=== PATIENT | female | born 1935 | race Caucasian/White ===

== ENCOUNTER 2018-08-27 20:21 | Emergency (ER) | payer OTHER ==
[~2018-08-27] VITALS: Ht 154.9 cm; Wt 56.7 kg
--- NOTE | ~2018-08-27 | EKG ---
[address] [address] ELECTROCARDIOGRAM REPORT Name: FARA JOHNSON [id number] Admission: 08/27/18 Attend Phys: Discharge: 08/27/18 Date of : 31 Report #: [id number] THIS REPORT FOR: //name// [facility] ED Test Date: 2018-08-27 Test Time: 21:18:05 Pat Name: FARA JOHNSON Department: Room: Gender: F Epic Application Coordinator: ANGIE : 1935 Requested By: Bridgette Chavez Order Number: [id number] MD: Brett Guevara Measurements Intervals [place] Rate: 56 P: 9 [place]: 166 QRS: -2 QRSD: 95 T: 33 QT: 436 QTc: 421 Interpretive Statements Sinus rhythm No previous ECG available for comparison Electronically Signed On 08-30-2018 11:01:31 WRAPPER DIPPER by Brett Guevara [email or web address] <ELECTRONICALLY SIGNED> By: Brett Guevara MD 08/30/18 1101 [id number] [id number] Brett Guevara MD /SONG
[~2018-08-27 20:21] MED LIST: CLONAZEPAM 0.50.5 M1 PO; DEPAKOTE 250MG250 M1 PO; KEFLEX500 MG PO; KLONOPIN1 MG PO; LANSOPRAZOLE30 MG PO; LIPITOR 20 MG T20 M1 PO; LOSARTAN POTAS100 MG PO; MOBIC15 MG PO; NITROFURANTOIN100 MG PO; SEROQUEL 25 MG25 M1 PO; ZOFRAN ODT4 MG SUBLING
[2018-08-27 21:33] LABS: ABSOLUTE NEUTROPHILS 5.7 thou/uL (1.4-8.2); BASOPHILS 0.5 % (0.0-2.0); EOSINOPHILS 2.7 % (0.0-3.0); HEMATOCRIT 40.1 % (37.0-47.0); HEMOGLOBIN 13.8 gm/dL (12.0-15.0); LYMPHOCYTES 20.7 % (24.0-44.0); MCH 31.6 pg (26.0-34.0); MCHC 34.4 g/dL (28.0-37.0); MCV 91.8 fL (80.0-100.0); PLATELET COUNT 241 thou/uL (150-400); POLYS 65.1 % (36.0-66.0); RBC 4.36 mil/uL (4.20-5.00); RDW 13.6 % (10.5-14.5); WBC 8.7 thou/uL (4.0-11.0)
[2018-08-27 21:43] LABS: ANION GAP 10 mmol/L (7-16); BUN 14 mg/dL (7-18); CALCIUM 8.8 mg/dL (8.5-10.1); CHLORIDE 101 mmol/L (98-107); CO2 28 mmol/L (21-32); CREATININE 0.9 mg/dL (0.6-1.0); GLUCOSE 122 mg/dL (74-106); POTASSIUM 4.3 mmol/L (3.5-5.1); SODIUM 139 mmol/L (136-145)
[2018-08-27 21:44] LABS: INR 1.1; PROTIME 11.1 Seconds (9.3-11.4)
[2018-08-27 21:47] LABS: URINE BILIRUBIN NEGATIVE (Negative); URINE BLOOD 1+ (Negative); URINE CLARITY CLEAR; URINE COLOR YELLOW; URINE GLUCOSE-RANDOM* NEGATIVE (Negative); URINE KETONES NEGATIVE (Negative); URINE NITRITE-REFLEX NEGATIVE (Negative); URINE PROTEIN (DIPSTICK) NEGATIVE (Negative); URINE UROBILINOGEN 0.2 E.U./dl (0.2-1.0)
[2018-08-27 21:52] LABS: ALBUMIN 3.4 g/dL (3.4-5.0); SGOT 24 U/L (15-37); SGPT 19 U/L (30-65); TOTAL BILIRUBIN 0.5 mg/dL (<0.1-1.0); TOTAL PROTEIN 7.4 g/dL (6.4-8.2); TROPONIN-I <0.06 ng/mL (<0.06)
[2018-08-27 21:59] LABS: URINE LEUKOCYTES-REFLEX 1+ (Negative)
[2018-08-27 22:01] LABS: BACTERIA-REFLEX 1-9 Few /HPF (None Seen); CASTS None Seen /LPF (None Seen); CRYSTALS None Seen /LPF (None Seen); SQUAMOUS 0-3 Few /LPF (0-3); URINE RBC None Seen /HPF (0-2); URINE WBC-REFLEX 0-5 Rare /HPF (0-5)
[2018-08-27] MEDS ORDERED: TOPROL XL100 MG PO (22:04)
[2018-08-27] MEDS ORDERED: NORVASC5 MG PO (22:05)
[2018-08-27] MEDS ORDERED: KEFLEX500 M1 PO (22:16)
[2018-08-27 22:25] VITALS: BP 159/85
== END 2018-08-27 22:33 | disposition home or self-care (01) ==
LOC: ER 20:21
PROVIDERS: Physician Assistant
DX: N39.0 Urinary tract infection, site not specified (principal); R42 Dizziness and giddiness; Z96.652 Presence of left artificial knee joint; Z90.49 Acquired absence of other specified parts of digestive tract; Z98.890 Other specified postprocedural states

== ENCOUNTER 2018-12-15 04:43 | Emergency (ER) | payer OTHER ==
[~2018-12-15] VITALS: Ht 157.5 cm; Wt 68.0 kg
[~2018-12-15 04:43] MED LIST changes: +KEFLEX500 M1 PO; +NORVASC5 MG PO; +TOPROL XL100 MG PO
[2018-12-15] MEDS ORDERED: COLACE100 MG PO (05:52)
[2018-12-15] MEDS ORDERED: MIRALAX17 GM PO (05:52)
[2018-12-15 06:20] VITALS: BP 176/105
== END 2018-12-15 06:53 | disposition home or self-care (01) ==
LOC: ER 04:43
DX: K59.00 Constipation, unspecified (principal); Z96.652 Presence of left artificial knee joint; Z90.49 Acquired absence of other specified parts of digestive tract

== ENCOUNTER 2019-01-08 14:32 | Inpatient (IN) | payer OTHER ==
[~2019-01-08] VITALS: Ht 160 cm; Wt 63.5 kg
--- NOTE | ~2019-01-08 | HC ---
[facility] [place] [address] CONSULTATION Name: FARA JOHNSON Room #: 421-P ADM IN M.R.#: [id number] Admission: 01/08/19 ������������������ Attend Phys: Trav Hope MD Discharge: ������������������ Date of : 33 Report #: [id number] THIS REPORT FOR: //name// CC: DANA physician/PCP Trav Hope DATE OF SERVICE: 01/10/2019 HISTORY OF PRESENT ILLNESS: This is an 83-year-old female patient who was evaluated by me for any neurological etiology for the patient's dizziness. This patient is extremely hard of hearing. Her mentation also does not look very good. I talked to the nurses and looks like they are planning to send her to an assisted or supervised living. She had dizziness. At one time nystagmus was noticed. Apparently, she had some nausea associated with this. She also had some fall. She is not complaining of any neck pain. She does not know if she hit her head or not. REVIEW OF SYSTEMS: Indicates that she is very hard of hearing. She tells me that she does not remember ever having a stroke. She indicates she has seen Dr. Sue, but she does not know for what purpose. I tried to get further history in this patient. I am not able to get any further history. She is on multiple psychiatric medications, and I am not sure why she is on that. She is on Depakote, Seroquel and lorazepam as per record, but I do not know how long she has been on it and what is the reason she is on that. REVIEW OF SYSTEMS: I carried out the 14-point review of systems the best I could, and this is all a relevant history I can get. PAST MEDICAL HISTORY: As described above. FAMILY HISTORY: Negative for any early age stroke. SOCIAL HISTORY: She said she does not drink alcohol. PHYSICAL EXAMINATION: Indicates she is alert. She could not tell me what hospital she is in, but she is also very hard of hearing. She also could not tell me the exact date. Her speech looks intact. Cranial nerve examination on my examination does not appear to be showing any definite nystagmus. She moves all 4 extremities. Her position sense looks intact. Tone is symmetrical. There is no meningeal sign. There is no carotid bruit in this patient. She has no edema. Blood pressure is 155/81, respirations 18, pulse is 71, and temperature is 98.4. LABORATORY DATA: White count is 7.1, when she came in, it was somewhat high. She did have a CT angiogram of the head and neck, and she also had an MRI of the brain and that appeared unremarkable and at least does not explain any etiology [address] [address] CONSULTATION Name: FARA JOHNSON Room #: 421-P ADM IN M.R.#: [id number] Admission: 01/08/19 ������������������ Attend Phys: Trav Hope MD Discharge: ������������������ Date of : 31 Report #: [id number] for the patient's dizziness. IMPRESSION: It is unlikely that there is any neurological etiology for the patient's dizziness. Extensive neurological workup is unremarkable, and she should follow up with her ENT physician. Depending upon their workup and their impression, she may or may not need any further neurological evaluation. Thank you very much for this referral. ��������������������������������������������� ���������������������������������������� By: ��������������������������������������������� 2118 1203 Nehemiah Frias MD /sunita
[~2019-01-08 14:32] MED LIST changes: +COLACE100 MG PO; +MIRALAX17 GM PO
[2019-01-08 14:33] VITALS: BP 166/88
[2019-01-08 15:12] LABS: URINE BILIRUBIN NEGATIVE (Negative); URINE BLOOD TRACE (Negative); URINE CLARITY CLEAR; URINE COLOR YELLOW; URINE GLUCOSE-RANDOM* TRACE (Negative); URINE KETONES NEGATIVE (Negative); URINE LEUKOCYTES-REFLEX TRACE (Negative); URINE NITRITE-REFLEX NEGATIVE (Negative); URINE PROTEIN (DIPSTICK) NEGATIVE (Negative); URINE SPECIFIC GRAVITY 1.015 (1.005-1.035); URINE UROBILINOGEN 0.2 E.U./dl (0.2-1.0)
[2019-01-08 15:14] LABS: ABSOLUTE NEUTROPHILS 11.3 thou/uL (1.4-8.2); BASOPHILS 0.3 % (0.0-2.0); HEMATOCRIT 38.3 % (37.0-47.0); HEMOGLOBIN 12.9 gm/dL (12.0-15.0); LYMPHOCYTES 5.4 % (24.0-44.0); MCH 31.4 pg (26.0-34.0); MCHC 33.7 g/dL (28.0-37.0); MCV 93.1 fL (80.0-100.0); MONOCYTES 2.2 % (1.0-8.0); PLATELET COUNT 198 thou/uL (150-400); POLYS 92.1 % (36.0-66.0); RBC 4.12 mil/uL (4.20-5.00); WBC 12.3 thou/uL (4.0-11.0)
[2019-01-08 15:15] LABS: SSA (PROTEIN CONFIRMATORY) TRACE (APPROX. 5) mg/dL (Negative)
[2019-01-08 15:22] LABS: ANION GAP 11 mmol/L (7-16); BUN 15 mg/dL (7-18); CALCIUM 8.7 mg/dL (8.5-10.1); CHLORIDE 99 mmol/L (98-107); CO2 25 mmol/L (21-32); CREATININE 0.8 mg/dL (0.6-1.0); GLUCOSE 205 mg/dL (74-106); POTASSIUM 3.7 mmol/L (3.5-5.1); SODIUM 135 mmol/L (136-145)
[2019-01-08 15:25] LABS: INR 1.1; PROTIME 11.1 Seconds (9.3-11.4)
[2019-01-08 15:32] LABS: ALBUMIN 3.2 g/dL (3.4-5.0); SGOT 16 U/L (15-37); SGPT 15 U/L (30-65); TOTAL BILIRUBIN 0.4 mg/dL (<0.1-1.0); TROPONIN-I <0.06 ng/mL (<0.06)
--- NOTE | 2019-01-08 15:48 | EKG ---
[place] [address] [facility] [place] [address] ELECTROCARDIOGRAM REPORT Name: FARA JOHNSON [id number] ������������������ Admission: 01/08/19 ������������������ Attend Phys: Discharge: ������������������ Date of : 31 Report #: [id number] ����������������������������������������������������������������� [id number] THIS REPORT FOR: //name// [facility] ED Test Date: 2019-01-08 Test Time: 15:19:27 Pat Name: FARA JOHNSON Department: Room: Gender: F Hand Bobbin Cleaner: : 1935 Requested By: Bridgette Chavez Order Number: [id number] MD: Brett Guevara Measurements Intervals [place] Rate: 62 P: 0 VT: 181 QRS: -4 QRSD: 107 T: 21 QT: 449 QTc: 456 Interpretive Statements Sinus rhythm Compared to ECG 08/27/2018 21:18:05 No significant changes Electronically Signed On 01-08-2019 15:48:27 CDT by Brett Guevara [email or web address] ��������������������������������������������� <ELECTRONICALLY SIGNED> ���������������������������������������� By: Brett Guevara MD ��������������������������������������������� 01/08/19 1548 1519 1519 MD VY Hernadez
[2019-01-08 18:28] VITALS: BP 133/78
[2019-01-08 18:48] VITALS: BP 144/79
[2019-01-08 19:48] VITALS: BP 143/73
[2019-01-08 20:20] LABS: ALBUMIN 3.3 g/dL (3.4-5.0)
[2019-01-08 20:45] LABS: TSH 2.07 uIU/mL (0.358-3.740)
--- NOTE | 2019-01-09 03:04 | NUR ---
PT ARRIVED ON UNIT FROM ER AT APPROX 1945. COMES FROM [facility] AND WAS ADMITTED FOR AN UNWITNESSED FALL AND DIZZINESS. VOIDING PER BEDPAN. DENIES PAIN. RESTING COMFORTABLY. NO NEEDS VOICED. CALL LIGHT WITHIN REACH. WILL CONTINUE TO PROVIDE FREQUENT OBSERVATION.
[2019-01-09 04:18] VITALS: BP 133/65
[2019-01-09 04:25] LABS: HEMATOCRIT 36.2 % (37.0-47.0); HEMOGLOBIN 12.3 gm/dL (12.0-15.0); MCH 31.9 pg (26.0-34.0); MCHC 34.1 g/dL (28.0-37.0); MCV 93.6 fL (80.0-100.0); RBC 3.87 mil/uL (4.20-5.00); RDW 13.9 % (10.5-14.5); WBC 11.2 thou/uL (4.0-11.0)
[2019-01-09 04:51] LABS: CALCIUM 8.8 mg/dL (8.5-10.1); CREATININE 0.6 mg/dL (0.6-1.0); MAGNESIUM 1.9 mg/dL (1.8-2.4); POTASSIUM 3.5 mmol/L (3.5-5.1)
[2019-01-09 07:07] VITALS: BP 128/67
--- NOTE | 2019-01-09 14:54 | NUR ---
PT A&OX3-4, IV INTACT IN L AC. AMBULATES WITH ASSIST X1. YUHAAVIATAM AND ANXIOUS. DAUGHTERS AT BEDSIDE. BED ALARM ON. WILL CONT. TO [facility] FOR SAFETY.
[2019-01-09 16:15] VITALS: BP 147/85
[2019-01-09 20:09] VITALS: BP 162/81
--- NOTE | 2019-01-10 02:32 | NUR ---
PT IN BED RESTING QUIETLY AT [facility] OF SHIFT THIS PM. SOME ANXIETY NOTED AND CURIOUS TO MEDS SHE IS GETTING AT HS. EXPLAINED MED PROTOCOL AND SHE WAS COMFORTABLE WITH EXPLANATION. USED BP WITH ASSIST X2 THIS PM. CURRENTLY SLEEPING.
[2019-01-10 04:40] VITALS: BP 138/71
[2019-01-10 05:56] LABS: CALCIUM 8.3 mg/dL (8.5-10.1); CREATININE 0.8 mg/dL (0.6-1.0); MAGNESIUM 1.9 mg/dL (1.8-2.4); POTASSIUM 3.5 mmol/L (3.5-5.1)
[2019-01-10 08:17] LABS: HEMATOCRIT 38.9 % (37.0-47.0); MCH 31.3 pg (26.0-34.0); MCHC 33.4 g/dL (28.0-37.0); MCV 93.7 fL (80.0-100.0); RBC 4.15 mil/uL (4.20-5.00); WBC 7.1 thou/uL (4.0-11.0)
[2019-01-10 08:52] VITALS: BP 164/94
--- NOTE | 2019-01-10 15:27 | 2DMMODE ---
[facility] [address] [place] [address] 2 D/M-MODE ECHOCARDIOGRAM Name: FARA JOHNSON Room #: 421-P [facility] IN .R.#: [id number] ������������� Admission: 01/08/19 ������������� Attend Phys: Trav Hope, Discharge: ��� ������������� ��� Date of : 31 Date of Service: 01/10/19 1527 �� Report #: [id number] �������� ��������������������������������������������[id number] THIS REPORT FOR: //name// APPROVED REPORT Study performed: 01/10/2019 13:45:00 EXAM: Comprehensive 2D, Doppler, and color-flow Echocardiogram Patient Location: Bedside Room #: [facility] Status: routine BSA: 1.66 HR: 65 bpm BP: 164/94 mmHg Rhythm: NSR Other Information Study Quality: Adequate Indications Dizziness and Vertigo Hypertension/HDD 2D Dimensions RVDd: 26.35 mm IVSd: 15.35 (7-11mm) LVOT Diam: 18.62 (18-24mm) LVDd: 31.05 mm PWd: 15.14 (7-11mm) Ascending Ao: 29.92 (22-36mm) LVDs: 24.29 (25-40mm) Aortic Root: 28.69 mm IVC: 23.00 mm Volumes Left Atrial Volume (Systole) Single Plane 4CH: 59.17 mL Single Plane 2CH: 67.44 mL LA ESV Index: 42.00 mL/m2 Aortic Valve AoV Peak Diego.: 0.96 m/s AO Peak Gr.: 3.65 mmHg LVOT Max P.72 mmHg LVOT Max V: 0.82 m/s DANIEL Vmax: 2.35 cm2 Mitral Valve E/A Ratio: 0.5 MV Decel. Time: 304.68 ms [facility] [address] [place] [address] 2 D/M-MODE ECHOCARDIOGRAM Name: FARA JOHNSON Room #: 421-P [facility] IN ..#: [id number] ������������� Admission: 01/08/19 ������������� Attend Phys: Trav Hope, Discharge: ��� ������������� ��� Date of : 31 Date of Service: 01/10/19 1527 �� Report #: [id number] �������� ��������������������������������������������[id number] MV E Max Diego.: 0.50 m/s MV A Diego.: 0.91 m/s MV PHT: 88.36 ms IVRT: 115.34 ms Pulmonary Valve PV Peak Diego.: 0.85 m/s PV Peak Gr.: 2.89 mmHg Pulmonary Vein P Vein S: 0.50 m/s P Vein A: 0.23 m/s P Vein D: 0.30 m/s P Vein A Dur.: 115.3 msec P Vein S/D Ratio: 1.67 Tricuspid Valve RAP Estimate: 15.00 mmHg Left Ventricle The left ventricle is normal size. Moderate concentric left ventricular hypertrophy. The left ventricular systolic function is normal. The left ventricular ejection fraction is within the normal range. LVEF is 55%. Mild diastolic dysfunction is present (impaired relaxation pattern). Right Ventricle The right ventricle is normal size. The right ventricular systolic function is normal. Atria Left atrium is mildly dilated. The right atrium size is normal. Aortic Valve Aortic valve is mildly calcified. Trace to mild aortic regurgitation. There is no aortic valvular stenosis. Mitral Valve The mitral valve is normal in structure. Mild mitral regurgitation. No evidence of mitral valve stenosis. Tricuspid Valve The tricuspid valve is normal in structure. Trace tricuspid regurgitation. Unable to assess PA pressure. Pulmonic Valve The pulmonary valve is normal in structure. There is no pulmonic valvular regurgitation. [facility] [address] [place] [address] 2 D/M-MODE ECHOCARDIOGRAM Name: FARA JOHNSON Room #: 421-P [facility] IN .R.#: [id number] ������������� Admission: 01/08/19 ������������� Attend Phys: Trav Hope, Discharge: ��� ������������� ��� Date of : 31 Date of Service: 01/10/19 1527 �� Report #: [id number] �������� ��������������������������������������������[id number] Great Vessels The aortic root is normal in size. IVC is mildly dilated and collapses <50% with inspiration. Pericardium There is no pericardial effusion. <Conclusion> The left ventricle is normal size. LVEF is 55%. Left atrium is mildly dilated. Aortic valve is mildly calcified. Trace to mild aortic regurgitation. The mitral valve is normal in structure. Mild mitral regurgitation. The tricuspid valve is normal in structure. Trace tricuspid regurgitation. Unable to assess PA pressure. The pulmonary valve is normal in structure. There is no pericardial effusion. ��������������������������������������������� <ELECTRONICALLY SIGNED> ���������������������������������������� By: Reagan Curtis MD ��������������������������������������������� 01/10/19 1527 1527 1527 Reagan Curtis MD /INF
--- NOTE | 2019-01-10 15:35 | NUR ---
INITIAL ASSESSMENT: Pt evaluated for d/c planning needs. Reviewed chart and spoke with nurse, pt and pt's daughter. [facility] [place]. She has cane for ambulation and has been on service with [facility] in the past. Pt and family plan on pt returning home on d/c from hospital. Will remain available to assist as needed.
[2019-01-10 16:00] VITALS: BP 155/81
--- NOTE | 2019-01-10 18:30 | NUR ---
ASSUMED CARE AT 0700, SHIFT ASSESSMENT DONE, MEDS GIVEN, VSS. WORKED WITH OCCUPATIONAL THERAPHY, REFUSED PHYSICAL THERAPHY. MRI OF HEAD WAS NEGATIVE. DENIES PAIN, NAUSEA, VOMITING. WILL CONTINUE TO ASSESS AND ASSIST WITH ADLs NEEDED.
[2019-01-10 20:50] VITALS: BP 145/75
--- NOTE | 2019-01-11 03:52 | NUR ---
ASSUMED CARE AT START OF SHIFT PT ALERT TO SELF AND PLACE VERY CHEVAK EVEN WITH HEARING AIDS, PT IMPULSIVE WHEN HAVING TO GET OUT OF BED TO GO TO BATHROOM, BED ALARM ON FOR SAFETY, DISCUSSED PLAN OF CARE VERBALIZED UNDERSTANDING AND AGREEABLE. WILL REPORT CHANGES OR ABNORMAL FINDINGS.
[2019-01-11 04:30] VITALS: BP 142/84
[2019-01-11 05:15] LABS: HEMATOCRIT 39.5 % (37.0-47.0); HEMOGLOBIN 13.2 gm/dL (12.0-15.0); MCH 31.5 pg (26.0-34.0); MCHC 33.5 g/dL (28.0-37.0); MCV 94.2 fL (80.0-100.0); RBC 4.2 mil/uL (4.20-5.00); WBC 8.4 thou/uL (4.0-11.0)
[2019-01-11 05:26] LABS: CALCIUM 8.6 mg/dL (8.5-10.1); CREATININE 0.8 mg/dL (0.6-1.0); POTASSIUM 3.8 mmol/L (3.5-5.1)
[2019-01-11 07:50] VITALS: BP 143/81
--- NOTE | 2019-01-11 12:08 | NUR ---
I have reviewed the documentation by EDILMA DIAZ from 01/11/19 to 01/11/19 and I concur with it. GLYNN AWAN
--- NOTE | 2019-01-11 14:35 | NUR ---
Following for d/c planning needs. Pt is medically ready for d/c. Spoke at length with pt's daughter, VIJAYA Pruett at the [facility]. Dtr states that pt has been to skilled in the past, and pt is safe to return home. Pt has [employer] at home and daughter is trying to find places where patient can go during the day to keep her occupied. Dtr has hired someone private duty one day a week to spend time with pt. Pt's son-in-law is also taking pt to outings during the week. Provided [employer] to pt. Dtr is agreeable to home health. Pt has had [facility] in the past and wants to use again. Notified [facility]. No other needs identified.
[2019-01-11 14:50] VITALS: BP 143/81
--- NOTE | 2019-01-11 15:35 | HC ---
[facility] [place] [address] CONSULTATION Name: FARA JOHNSON Room #: 421-P ADM IN M.R.#: [id number] Admission: 01/08/19 ������������������ Attend Phys: Trav Hope MD Discharge: ������������������ Date of : 33 Report #: [id number] THIS REPORT FOR: //name// CC: [facility] physician/PCP Romulo Hope DATE OF SERVICE: 01/09/2019 SURGEON: Duke Yu MD. REASON FOR CONSULTATION: Syncope. HISTORY OF PRESENT ILLNESS: This is an 83-year-old female admitted via the Emergency Department on 01/08/2019 after falling. She lives by herself at home and about 7 in the morning, had a sudden onset of syncope. She fell hitting her head with questionable loss of consciousness. She was brought by EMS to the Emergency Department. The patient has no previous history of vertigo. She had an episode of syncope 1 year ago, treated and released from [facility] with similar symptoms. Both of her daughters are here to provide history. Her daughter has had benign positional vertigo and felt by her diagnosis that this was benign positional vertigo. The patient has no history of this in the past. This was not brought on by any movement and was very much consistent with syncope. I explained to the daughters and the patient that it is unusual that this would occur as primary benign positional vertigo is an 83-year-old with no previous history of this in the past. The patient is in the middle of a cardiac and neurologic workup. 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. PAST MEDICAL HISTORY: Cellulitis, closed head injury, constipation, facial pain, multiple falls, unable to ambulate. MEDICATIONS: Reviewed in the electronic health record. ALLERGIES: None. REVIEW OF SYSTEMS: She has no particular complaints this morning. She is not dizzy. PHYSICAL EXAMINATION: GENERAL: Shows a well-developed, thin, 83-year-old female, seen in her hospital [address] [place] [address] CONSULTATION Name: FARA JOHNSON Room #: 421-P [facility] IN M.R.#: [id number] Admission: 01/08/19 ������������������ Attend Phys: Trav Hope MD Discharge: ������������������ Date of : 31 Report #: [id number] room with both daughters. She is alert, awake, oriented x 3 and conversant. She is hard of hearing with bilateral in the ear hearing aids in place. She just recently got these from her group billing coordinator, Dr. Sue. VITAL SIGNS: Show temperature of 98, pulse of 66, blood pressure 128/67, 96% on room air. HEENT: She is normocephalic. Pupils equal, round. No nystagmus. Facial exam shows abrasions over the left zygoma and cheek. Otologic exam, intact mobile tympanic membrane. No middle ear effusion. No mastoid tenderness. Nasal exam: Deviated septum to the left. Oral cavity: Missing teeth, no mucosal lesions. NECK: No adenopathy, no masses, no thyromegaly. No carotid bruits. No bruits over the mastoid. NEUROLOGIC: Cranial nerves 2-12 are intact. Motor, sensory and cerebellar exams are normal. CBC shows a white count elevated 11.2. Hemoglobin of 12.3. Metabolic evaluation is normal. TSH in the normal range. I have reviewed the patient's scans including a CT angiogram, CT facial bone, CT C-spine and CT head with no acute findings. ASSESSMENT: Syncope. In absence of a previous history of vertigo, it would be unusual for benign positional vertigo to just begin in an 83-year-old. In addition, this is usually not severe enough to require hospitalization. The patient is in the hospital to rule out more dangerous etiologies such as cardiac or neurologic sequelae. I would recommend further evaluation including echocardiogram and carotid Doppler studies. In addition, consideration of MRI of the brain to assess for late effect after yesterday morning's syncopal episode. PLAN: Once all other etiologies have been ruled out, the patient will require a formal evaluation, which is impossible to do in the hospital by Otolaryngology. She may follow up with her group billing coordinator, Dr. Sue. I would recommend audiogram in addition to comprehensive vestibular testing at [facility]. If labyrinthine etiology can be ascertained by testing, consideration can be given to treatment usually by physical therapy. I appreciate the consultation. I will not plan to follow along with you in the hospital. I have encouraged her to follow up with her Oscillograph Technician, Dr. Sue post discharge. ��������������������������������������������� <ELECTRONICALLY SIGNED> ���������������������������������������� By: Duke Yu MD ��������������������������������������������� 01/11/19 1535 1201 0316 Duke Yu MD /nt
[2019-01-11] MEDS ORDERED: ANTIVERT25 MG PO (16:13)
[2019-01-11] MEDS ORDERED: METOPROLOL SUCC50 MG PO (16:13)
[2019-01-11 16:56] VITALS: BP 143/81
--- NOTE | 2019-01-11 17:16 | NUR ---
DISCHARGE PAPERWORK GONE OVER WITH PATIENT, SIGNED AND COPY IN CHART. IV ACSESS DCD. RX'S GIVEN TO PATIENT. ALL BELONGINGS PACKED AND SENT WITH PATIENT.
--- NOTE | 2019-01-11 18:18 | NUR ---
PT DISCHARGED AT THIS TIME. TAKEN VIA W/C TO [facility]. STOPPED BY THE PHARMACY FOR HOME MEDS.
[2019-01-11 18:19] VITALS: BP 143/81
== END 2019-01-11 18:25 | disposition home health service (06) | DRG 149 ==
LOC: ER 14:32 → 4E 18:17 → EROBS 18:17 → 4E 19:16 → ENTRNSPT 01-11 17:56 → 4E 01-11 18:25
PROVIDERS: Physician Assistant; ADMIT Internal Medicine
DX: H81.10 Benign paroxysmal vertigo, unspecified ear (principal); I10 Essential (primary) hypertension; F03.90 Unspecified dementia, unspecified severity, without behavioral disturbance, psychotic disturbance, mood disturbance, and anxiety; Z96.652 Presence of left artificial knee joint; H91.90 Unspecified hearing loss, unspecified ear; F41.1 Generalized anxiety disorder; E78.5 Hyperlipidemia, unspecified; S09.90XA Unspecified injury of head, initial encounter; M19.90 Unspecified osteoarthritis, unspecified site; W18.00XA Striking against unspecified object with subsequent fall, initial encounter; Z87.440 Personal history of urinary (tract) infections; Y93.89 Activity, other specified; Y92.89 Other specified places as the place of occurrence of the external cause; Y99.8 Other external cause status; Z90.49 Acquired absence of other specified parts of digestive tract; Z79.899 Other long term (current) drug therapy
CPT/HCPCS: 10084; 10183

== ENCOUNTER 2020-10-10 16:08 | Inpatient (IN) | payer OTHER ==
[~2020-10-10] VITALS: Ht 160 cm; Wt 60.4 kg
[~2020-10-10 16:08] MED LIST changes: +ANTIVERT25 MG PO; +METOPROLOL SUCC50 MG PO
[2020-10-10 16:11] VITALS: BP 138/88
[2020-10-10 17:50] LABS: URINE BILIRUBIN NEGATIVE (Negative); URINE BLOOD TRACE (Negative); URINE CLARITY CLEAR; URINE COLOR YELLOW; URINE GLUCOSE-RANDOM* NEGATIVE (Negative); URINE KETONES 1+ (Negative); URINE NITRITE-REFLEX NEGATIVE (Negative); URINE PROTEIN (DIPSTICK) NEGATIVE (Negative); URINE UROBILINOGEN 0.2 E.U./dl (0.2-1.0)
[2020-10-10 17:54] LABS: URINE LEUKOCYTES-REFLEX 2+ (Negative)
[2020-10-10 17:57] LABS: BACTERIA-REFLEX 1-9 Few /HPF (None Seen); CASTS None Seen /LPF (None Seen)
[2020-10-10 17:58] LABS: CRYSTALS None Seen /LPF (None Seen); RENAL EPITHELIAL CELLS 0-3 Few /LPF (None Seen); SQUAMOUS 0-3 Few /LPF (0-3); URINE RBC 0-2 Rare /HPF (0-2); URINE WBC-REFLEX 6-15 Few /HPF (0-5)
[2020-10-10 18:52] LABS: BASOPHILS 0.3 % (0.0-2.0); EOSINOPHILS 0.3 % (0.0-3.0); HEMATOCRIT 42.4 % (37.0-47.0); HEMOGLOBIN 13.9 gm/dL (12.0-15.0); LYMPHOCYTES 10.3 % (24.0-44.0); MCH 30.8 pg (26.0-34.0); MCHC 32.7 g/dL (28.0-37.0); MCV 94.1 fL (80.0-100.0); MONOCYTES 8.1 % (1.0-8.0); PLATELET COUNT 243 thou/uL (150-400); RDW 13.6 % (10.5-14.5); WBC 12.3 thou/uL (4.0-11.0)
[2020-10-10] MEDS ORDERED: VALSARTAN160 MG PO (18:54)
[2020-10-10 19:00] LABS: CREATININE 1.2 mg/dL (0.6-1.0); POTASSIUM 4.4 mmol/L (3.5-5.1)
[2020-10-10 19:53] VITALS: BP 148/75
[2020-10-10 21:06] VITALS: BP 136/95; BP 145/82
[2020-10-11 03:40] VITALS: BP 166/98
--- NOTE | 2020-10-11 05:02 | NUR ---
RECIEVED CARE OF THIS PATIENT AT 2100 WHEN SHE ARRIVED FROM ED VIA CART ACCOMPANIED BY ED CHRISTOEL. PATIENT ALERT AND ORIENTED X4 BUT CONFUSED ABOUT SOMETHINGS AND FORGETFUL. LOSES TRAIN OF THOUGHT OFTEN AND STARTS TO TALK ABOUT SOMETHING DIFFERENT. UP TO BATHROOM/BSC SEVERAL TIMES WITH URGENCY. PARANOID AND IMPULSIVE. DENIES PAIN. SLEPT LITTLE THIS SHIFT.
[2020-10-11 07:19] VITALS: BP 143/55
--- NOTE | 2020-10-11 10:12 | NUR ---
assumed care at 0700. pt is a&o x4 but however is very confused and forgetful. daughter in the room and asked for psych christina. on her mom and if her mom can take clonzapem 3 times a day to help with psyc. will let doctor arnaldo know. iv is intact and shows no signs of redness or swelling. scd are in place. assist x1 to bsc. fall precaution. call light within reach. will continue to monitor.
--- NOTE | 2020-10-11 10:17 | NUR ---
assumed care at
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
[2020-10-11 15:49] VITALS: BP 124/69
[2020-10-11 20:54] VITALS: BP 142/84
--- NOTE | 2020-10-12 04:34 | NUR ---
Assumed pt care at 1900. Pt is alert ad confused. No sign of distress noted in pt. Pt is impulsive. Fall precaution in place. Assessment completed and documented. Scheduled meds administered to pt. Denies pain. No acute events noted. Continue to monitor. No further needs at this time.
[2020-10-12 05:09] VITALS: BP 128/85
--- NOTE | 2020-10-12 07:57 | NUR ---
PT RESTING AT THIS TIME.
[2020-10-12 09:00] VITALS: BP 137/96
--- NOTE | 2020-10-12 09:00 | NUR ---
PT AWAKE AT THIS TIME. PT GETTING MEDS FROM STUDENT NURSE AND TEACHER. PT TALKING ABOUT HER HAIR AND THAT SHE NEEDS MORE OF IT. PT ORIENTED TO SELF AND PLACE. PT TOOK MEDS WHOLE WITHOUT ANY ISSUES. PT LUNGS CLEAR AND ON ROOM AIR. PT HAS IV TO RT FA WITH FLUIDS RUNNING. PT UP AD HOMERO WITH STEADY GAIT.
[2020-10-12 09:03] VITALS: BP 137/96
[2020-10-12] MEDS ORDERED: CEFUROXIME250 MG PO (10:49)
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
--- NOTE | 2020-10-12 11:32 | NUR ---
COVID SWAB PERFORMED AT THIS TIME. WILL AWAIT RESULTS BEFORE DISCHARGING TO [facility].
--- NOTE | 2020-10-12 16:15 | NUR ---
GAVE REPORT TO RITA LILLY AT [facility].
--- NOTE | 2020-10-12 16:50 | NUR ---
PT LEFT VIA W/C TO [facility]. PT STATED SHE FELT AFRAID OF GOING TO NEW UNIT. REASURED PT AND DTR AT SIDE WALKING WITH HER. PT TAKEN TO [facility] AND INTRODUCED TO STAFF AND HER ROOM. PT SEEMS SCARED OF NEW PLACE.
== END 2020-10-12 16:58 | DRG 682 ==
LOC: ER 16:08 → EROBS 19:24 → 4S 19:24
PROVIDERS: Emergency Medicine; ADMIT Hospitalist; ATTEND Hospitalist
DX: N17.9 Acute kidney failure, unspecified (principal); G93.41 Metabolic encephalopathy; N39.0 Urinary tract infection, site not specified; Z20.822 Contact with and (suspected) exposure to COVID-19; Z96.652 Presence of left artificial knee joint; F03.90 Unspecified dementia, unspecified severity, without behavioral disturbance, psychotic disturbance, mood disturbance, and anxiety; E78.5 Hyperlipidemia, unspecified; F41.1 Generalized anxiety disorder; I10 Essential (primary) hypertension; F60.9 Personality disorder, unspecified; Z66 Do not resuscitate; Z60.2 Problems related to living alone; M19.90 Unspecified osteoarthritis, unspecified site; D72.829 Elevated white blood cell count, unspecified; Z90.49 Acquired absence of other specified parts of digestive tract; Z79.1 Long term (current) use of non-steroidal anti-inflammatories (NSAID); Z90.710 Acquired absence of both cervix and uterus
CPT/HCPCS: 10195

== ENCOUNTER 2020-10-12 17:49 | Inpatient (IN) | payer OTHER ==
[~2020-10-12] VITALS: Ht 154.9 cm; Wt 52.3 kg
[~2020-10-12 17:49] MED LIST changes: +CEFUROXIME250 MG PO; +VALSARTAN160 MG PO
[2020-10-12 18:27] VITALS: BP 145/93
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
[2020-10-12 20:03] VITALS: BP 197/94
--- NOTE | 2020-10-13 06:07 | NUR ---
ASSUMED PT'S CARE BEGINNING OF THIS PM SHIFT. CONFUSED. DID GET AGGRESSIVE AND AGITATED AFTER PUPPY DULL WAS TAKEN FROM HER. PT STARTED YELLING AND FOLLOWING STAFFING AROUND, VOICING THAT SHE CANNOT STAY HERE TONIGHT AND HAVE TO GO HOME. PT BECAME COMBATIVE. NURSING PAGED MATT LILLY ONCALL TO SEE IF PT COULD HAVE HER PUPPY TOY TO CALM HER DOWN. MATT BERMAN VOICED THAT SINCE MATT DOC REQUESTED PT TO NOT HAVE IT THEN HE OWULD ABIDE BY THAT. MATT BERMAN WAS PAGED AGAIN REGARDING PT'S AGITATION PT DECLINED HER PO MEDS. GEODON IM 10MG GIVEN ONETIME. PT DID GET CALM AFTER ABOUT AN HOUR AND CAME OUT OF HER ROOMS TO REQUEST MEDS. PT TOOK ALL HER PO MEDS. PT SLEPT WELL AFTERWARDS. PT NOW AWAKE WITH MILD INFLAMMATION OF RIGHT EYE WHICH IS CLEARING UP. WILL MENTION TO DAY RN. PT SEEMS TO BE UNSTEADY THIS AM. NOW BACK IN BED WITH BED ALARM IN PLACE. WILL CONTINUE TO MONITOR.
--- NOTE | 2020-10-13 12:47 | NUR ---
ASSUMED CARE AT 0700 THIS MORNING. PT. UP AND WALKING FROM HER ROOM TO THE DINING ROOM AND BACK REPEATEDLY. SHE IS VERY CONFUSED. ALERT AND ORIENTEDX1. SHE THINKS HER PARENTS ARE ON THEIR WAY TO PICK HER UP. SHE KEPT ASKING TO SEE THE DR. BUT WHEN DR. TORRES ARRIVED SHE KEPT TELLING HIM SHE COULD NOT TALK TO HIM BECAUSE HER PARENTS ARE ON THEIR WAY HERE. SHE GOT UPSET WITH THIS RN I INFORMED HER HE WANTS TO LISTEN TO HER HEART AND LUNGS. SHE WOULD NOT ALLOW THIS. SHE GOT ARGUMENATIVE WITH THE REQUEST. SHE DID TAKE HER MORNING MEDICATIONS ONE PILL AT A TIME, BUT DID TAKE THEM ALL. SHE HAS BEEN ON THE EDGE OF IRRITABILITY TODAY, TAKING SOME TALKING TO--TO MAINTAIN HER BEHAVIORS.
[2020-10-13 14:23] VITALS: BP 153/76
[2020-10-13 19:36] VITALS: BP 140/83
--- NOTE | 2020-10-14 03:31 | NUR ---
RECIEVED CARE OF THIS PATIENT AT 1900. PATIENT ALERT AND ORIENTED TO SELF ONLY. FIRST OF SHIFT PATIENT WAS CALM AND COOPERATIVE, BUT THE SHIFT WENT ON SHE BECAME UNRULY AND MORE AND MORE AGITATED. SHE KEPT INTERFERING IN THE CARE OF OTHERS. SHE WANTED TO LEAVE AND ACCUSSED THE NURSING STAFT KEEPING HER HERE. SHE CRABBED THE STAFF, PINCHED, TRIED TO BITE AND KICK. AN ORDER WAS OBTAINED TO GIVE PRN MED, GIVEN. FELL ASLEEP ABOUT [address] IN THE SHIFT. DEMIRS PAIN.
[2020-10-14 09:19] VITALS: BP 151/70
[2020-10-14 09:54] VITALS: BP 151/90
--- NOTE | 2020-10-14 10:49 | NUR ---
1030 RESUMMED CARE FROM OVERNIGHT SHIFT THIS AM, PATIENT WAS ON SOFA IN DAY ROOM ASLEEP. PATIENT HAD A PRN LAST NIGHT FOR AGITAION SHE WOKE UP ABOUT 10:00 ATE BREAKFAST. PATIENT TOOK MEDICATION WITHOUT INCIDENCE PATIENT IS ALERT ORIENTED TO SELF ONLY. PATIENT IS UNABLE TO TELL ME ABOUT SI/HI/AH/VH AT PRESENT. 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 PATIENTS LUNGS CLEAR PATIENT IS IMPULSIVE AT TIME AND HAS SOME ANXIETY. WILL CONTINUE TO MONITOR PATIENT FOR SAFETY AND BEHAVIORS.
--- NOTE | 2020-10-14 14:29 | NUR ---
Assessment and treatment plan completed
[2020-10-14 17:57] VITALS: BP 146/113
[2020-10-14 18:00] VITALS: BP 127/59
--- NOTE | 2020-10-14 22:52 | NUR ---
Assumed care on 10/14/20 @ 1900, ambulating ad shelia throughout the hallways and day room. Exit seeking, and when aproached to come away from the exit door, says that she is looking for a bathroom. Redirected to her room to the bathroom. Oriented to self only. Continent, Normoactive bowel sounds. HRRR, Lungs CTA. Cooperated with assessment. Unable to answer mental health assessment questions. Was able to remove her own hearing aides, placed in container at bedside. Tylenol 650 provided for arthritis in the hip upon follow up is sleeping. Kept trying to ask a question, related to medication, but extremely confused and referring to downspouts on the garage, the yard, and other unrelated trains of thought. Dressed herself in gown and accepted help with getting ready for bed at . Sleeping at this writing. Will continue to monitor for patient safety and comfort as per unit protocol.
[2020-10-15 01:36] VITALS: BP 146/113
[2020-10-15 09:30] VITALS: BP 114/88
--- NOTE | 2020-10-15 10:19 | NUR ---
PT JUST GOT UP AT THIS TIME. ASSISTED PT TO BATHROOM AND SHE GOT DRESSED ON OWN WITH SUPERVISION. PT WANTING TO WEAR SOME MAKE-UP. PER DTR SHE LIKES TO LOOK NICE AND CARE ABOUT HER APPEARIANCE. PT VERY HAPPY TO SEE DALE THAT WAS IN A PAPER BAG IN HER ROOM. PT UP WITH STEADY GAIT. PT TOOK MEDS WITHOUT ANY ISSUES.
[2020-10-15 10:34] VITALS: BP 114/88
--- NOTE | 2020-10-15 11:21 | NUR ---
Patient was seated at the dining table in the dayroom this AM. This nurse introduced herself. Patient was pleasant and cooperative, looking through a magazine. Patient having flight of ideas, pointing to pictures, speaking nonsensical thoughts. Patient then started to point to 2 different male patients. Patient asked if "those men" had eaten today. Nurse responded yes, everyone was able to eat. Patient stated she was worried about them because it was "poison and didn't want them to ". Patient assured that everyone is safe. Patient then asked to use the bathroom. As nurse was walking with patient to her room, patient asked where we were going a couple different times, then in the next statement stated she needed to use the bathroom. Once arriving to patient's room, nurse pointed out her name on the outside of the door. Patient stated "that's me, why are we here?". Nurse showed patient her bathroom. Patient stated "what is that for?". When explained that it is her bathroom, patient stated "I need to use the bathroom". Patient very confused this AM and displaying paranoia thoughts about other patients being poisoned.
--- NOTE | 2020-10-15 14:32 | NUR ---
BABS spoke to daughter Seble about pt; Seble wants to pursue guardianship of pt. BABS advised her to contact her contract attorney as soon as possible and begin that process as pt cannot stay in the hospital past when insurance determines she is no longer eligible to be on this unit. She said ok. BABS sent her a NH listing from medicare.gov, and [facility] handbook. Seble said that pt has Medicaid, but has not paid her spend down. BABS reviewed the Medicaid website and searched for pt; Medicaid shows that pt is active and has a spend down of $556. BABS provided Seble education on spend downs and [place] Medicaid vs. community Medicaid. BABS team will continue to follow pt during her stay on this unit.
--- NOTE | 2020-10-15 17:26 | NUR ---
PT HAS BEEN PLEASANT THIS SHIFT AND TAKING MEDICATION WITHOUT ANY ISSUES.
[2020-10-15 19:49] VITALS: BP 144/81
--- NOTE | 2020-10-16 03:49 | NUR ---
Assumed care of pt at 1900. Pt sitting out in dining room w/peer at start of shift. Pt was calm and cooperative at that time. Pt is A&O x 1 to self. Pt denied having any physical pain. Pt takes meds whole with water. Pt is medication complaint, but is resistant to taking the medications, as she believed she had already had the medications for the day. Explained and educated pt on the medications being given, what they were for, and how often she takes them. Pt was pleasantly confused earlier in shift. Pt became tearful and more agigitated later in shift when she went to her room. Pt observed asking this promotion writer, why is he so mean to mean, then proceded to show me her arm, taking about a niko that is coming to kill her. Talked to pt and re-assured she was at [facility] and she was safe. Pt observed pointing and talking to unseen objects/others. Stating she could see him and that it was the the Lord. Pt is continent and wears a brief. Pt is independent with ADL's. Pt is on 12 min checks for safety. Will continue to monitor for changes in mood/behavior & for safety per hospital/unit protocol.
[2020-10-16 08:35] VITALS: BP 129/75
--- NOTE | 2020-10-16 10:37 | NUR ---
New admit to [facility]. Hx anxiety, dementia, personality disorder. Attempted 2 visits today, pt not available. Chart reviewed, eating 100% of meals. Questionable wt status as 3 different wts obtained of 123-133-115 lb? Will follow wt and intake trends. For now, consider low nutrition risk since eating well.
--- NOTE | 2020-10-16 11:07 | NUR ---
BABS received a vm from [facility] stating that her leader writer told her that pt is not incompetent so does not need a guardian. Instead, pt needs a DPOA to be filled out with the leader writer. BABS returned [facility] call. No answer. BABS left a msg. BABS team will continue to follow pt during her stay on this unit.
--- NOTE | 2020-10-16 18:35 | NUR ---
Alert and oriented to name and place only. Confused speech t/o day. Up ambulating around unit with slow, steady gait. Denies SI/HI. Breath sounds clear. Reg HR auscultated. Color pink with brisk capillary refill and palpable peripheral pulses. Independent with voiding. Active bowel sounds over soft, rounded abdomen. Hearing aide found in sock and placed in ear. Spoke with children several times t/o day. Daughter called stating her Mom was living at home prior to admission and they thought (family) she was competent and that staff was looking at one incident, "a snapshot in time" and making a hasty decision to place her in facility. She stated she felt family was not being included in plan of care. She stated she disagreed with guardianship and that it was too expensive ($1,500) but that they were interested in becoming DPOA. States she talked with a SW who had not seen her Mom and wanted to know plan. Also concerned with lack of ability to visit--explained this was d/t COVID. Wants meeting with team. Dr. Reed and SW aware. Met with this afternoon r/t 96hr hold. Currently sitting in day room with peers, no s/o distress. they were pursuing
[2020-10-16 20:12] VITALS: BP 141/90
--- NOTE | 2020-10-17 01:11 | NUR ---
covid test negative 10/16/20
--- NOTE | 2020-10-17 07:44 | NUR ---
PROGRESS PT UP AD HOMERO WALKING HALLS AND SITTING IN DAYROOM MOST OF SHIFT. VERBALIZED THAT SHE WAS FEARFUL OF ANOTHER PT BUT SHE CONTINUED TO FOLLOW AND TALK TO HIM. VSS, NO SUICIDAL OR OTHER BEHAVIORS NOTED.
[2020-10-17 09:55] VITALS: BP 110/54
--- NOTE | 2020-10-17 11:29 | NUR ---
SW attempted to administer a SLUMS with pt. Pt was confused when SW asked to meet with her. She was also wandering with a male pt. Pt kept talking about how slow the nurse was coming out of the room and her pink shoes. She showed no understanding of what SW was asking her. SW team will continue to follow pt during her stay on this unit.
--- NOTE | 2020-10-17 13:20 | NUR ---
PATIENT WAS IN DAYROOM SLEEPING WHEN CARE ASSUMED AT 0700 HRS. WHEN AWOKEN, ASSISTED BY STAFF TO BATHROOM, AND SERVED BREAKFAST. PATIENT IS ALERT, FORGETFUL, AND VERY CONFUSED. PATIENT IS [place], REQUIRES CONSTANT REDIRECTION. PATIENT TOOK ALL MEDICATION WHOLE WITHOUT DIFFICULTY, SHE IS EATING MEALS, AND DRINKING FLUID FAIRLY WELL. PATIENT DENIES SUICIDAL IDEATION, NOT ABLE TO APPROPRIATELY RESPOND TO FURTHER ASSESSMENT QUESTIONS DUE TO COGNITIVE IMPAIRMENT. AFFECT IS FLAT/BLUNTED, MOOD IS DEPRESSED. NO SIGN OF ACUTE DISTRESS NOTED AT THIS TIME, WILL CONTINUE TO REDIRECT, AND MONITOR FOR SAFETY.
[2020-10-17 19:36] VITALS: BP 135/79
--- NOTE | 2020-10-18 04:44 | NUR ---
Assumed care for pt at 1900. Pt up in dining room sitting at table with peer. Pt presented at time with a flat affect, somewhat tearful/sad when talking about the baby. Pt holding and rocking a rolled towel that she states this is the baby, well it is not the baby, I hope the baby will be okay. Pt is compliant with nursing assessment and medications. Pt takes medications whole with water. Pt became increasingly confused around 2200 regarding her HS medications, then stated she was scared. Pt was redirectable after about 30 minutes she then laid down in bed. Pt denied having any pain. Pt is on 12 min rounds for safety. Will continue to monitor for any changes in mood/behaviors and safety per unit/hosptial protocol.
[2020-10-18 09:39] VITALS: BP 154/100
--- NOTE | 2020-10-18 13:03 | NUR ---
BABS spoke with pt about her daughter. BABS asked pt if she knows who Seble is and she responded "she's my daughter. She's a nurse." SW asked her if she thinks Seble makes good decisions. Pt responded "yes. She works for a hospital." SW asked her if Seble had to make decisions for her does she think they would be good ones. Pt responded "oh yes! she's very smart." SW asked pt if she knew what a DPOA was. Pt responded "I've heard of it before but Im not sure I ever knew what it was." SW asked her if she would like her to explain it and pt responded "sure." SW explained and pt said "oh yeah I know what that is." SW asked if she would ever want Seble to be her DPOA and pt responded "yes! I would be okay with that." BABS then contacted Dr. Reed and received permission based on her conversation with pt to have pt sign a DPOA doc. Dr. Reed gave her consent. When the power systems engineer arrived to complete pt's notary on the DPOA form, before pt signed BABS asked her if she remembered what a DPOA is and she responded "yes it's someone who makes decisions." BABS asked her again if she would like Seble as her DPOA and she said yes. BABS then witnessed pt sign a DPOA document with Seble as her agent with the power systems engineer. BABS received a vm from Seble requesting for her to send a referral to [facility] and that Dorian Booth was the rep she spoke to. BABS contacted Dorian and confirmed the fax number to send a referral. BABS sent the referral and also confirmed they accept Medicaid for payment. BABS provided an update to Seble concerning pt. Seble said she will get a copy of pt's DPOA docs this evening. BABS team will continue to follow pt during her stay on this unit.
--- NOTE | 2020-10-18 13:44 | NUR ---
Alert and orientated to name only. At times has appropriate conversations/requests, at other times is confused and restless. Denies SI/HI. Watery eyes with small amt clear drainage. Eyes slightly matted when first woke up. Wiping eyes and blowing nose several times in AM, no further symptoms. T. 99.2 orally. Took shower and washed hair with assistance. Breath sounds clear. Reg HR auscultated. Color pink with brisk capillary refill and palpable peripheral pulses. +2 pitting edema in lower legs and top of feet. Yellow urine per toilet. Active bowel sounds over soft rounded abdomen. Legs stiff this am, now ambulating with slow, steady gait. 2.5 cm salmon colored lesion on R lower leg, initially appeared slightly vesicular on top, less fluid when reassessed with johanna Pressley orders. Currently sitting in day room without s/o distress.
[2020-10-18 19:28] VITALS: BP 153/81
--- NOTE | 2020-10-19 03:22 | NUR ---
Assumed care of pt at 1900. Pt up wandering halls and spending time in dining room during earlier part of evening. Pt is A&O x 1 (self). Denies pain. Affect is flat. Mood variable, looking frustrate/tr at times, then observed smiling during conversations. Pt takes meds whole with water. Pt took all scheduled medications except for the Depakote ER, stating she would take it tomorrow, but she did drink 6 oz of water. Pt has been resting in her room in bed with her eyes shut majority of this shift. Pt is on 12 min checks for safety. Will continue to monitor for any changes in behavior/mood and safety.
[2020-10-19 09:44] VITALS: BP 153/97
--- NOTE | 2020-10-19 11:41 | NUR ---
SW sent referrals to the following NH: [facility] Chelsey Swenson at the [facility]'s SW team will continue to follow pt during her stay on this unit.
--- NOTE | 2020-10-19 14:58 | NUR ---
RT Progress Note- Dolores has been present in both the milieu and recreation therapy groups. She does attempt to socialize with peers, often sitting with them during both meals and free time. Her hearing impairment does serve as a strong barrier to successful and orientated conversation. When she can hear well, she is able to maintain better focus, however she does not always wear her hearing aids. She has not displayed any behaviors during interaction with recreation therapy staff. RT Team will continue to encourage patient's participation.
--- NOTE | 2020-10-19 17:38 | NUR ---
Assumed pt care at 0700. pt was in her room resting. pt was oriented to self. pt was calm and co-operative with care. pt took her medication whole without difficulties. pt ambulates with a steady gait. pt denies SI/HI, DEnNIES PAIN. There was no sign of distress noted. After lunch pt got agitated, PT states she wants to go home. pt is anxious at times,but she was redirectable. will continue to monitor.
[2020-10-19 19:41] VITALS: BP 170/91
--- NOTE | 2020-10-20 03:55 | NUR ---
Assumed pt's care beginning of this pm shift. Oriented to self. Confused. Pleasant. Pt was calm and cooperative with care. No anxiety or depression noted. Pt was in the dayroom, watching TV with peers. Pt took meds whole per emar. Pt sleeping well this shift. Continues to sleep in her room. Will continue to monitor.
[2020-10-20 06:23] LABS: HEMATOCRIT 34.3 % (37.0-47.0); HEMOGLOBIN 11.5 gm/dL (12.0-15.0); MCH 31.6 pg (26.0-34.0); MCHC 33.4 g/dL (28.0-37.0); MCV 94.6 fL (80.0-100.0); RBC 3.63 mil/uL (4.20-5.00); RDW 13.8 % (10.5-14.5); WBC 7.3 thou/uL (4.0-11.0)
[2020-10-20 06:52] LABS: ALBUMIN 2.8 g/dL (3.4-5.0); CALCIUM 8.6 mg/dL (8.5-10.1); CREATININE 0.9 mg/dL (0.6-1.0); POTASSIUM 4.3 mmol/L (3.5-5.1); TOTAL BILIRUBIN 0.5 mg/dL (0.2-1.0); TOTAL PROTEIN 5.5 g/dL (6.4-8.2)
[2020-10-20 07:47] VITALS: BP 137/87
--- NOTE | 2020-10-20 10:31 | NUR ---
Alert and orientated to self only. Confused speech but does answer some questions appropriatedly, follows directions. Denies SI/HI. States thumb hurts but then uses thumb to button and zipper jeans. Breath sounds clear. Reg HR auscultated. Color pink with brisk capillary refill and palpable peripheral pulses. +1-2 pitting edema in feet. Will apply RAMYA hose per order. Voided independently, yellow urine per toilet. Active bowel sounds over soft, rounded abdomen. Ambulating with regular, steady gait. Currently sitting at table with peers, no s/o distress.
[2020-10-20 18:23] VITALS: BP 157/92
--- NOTE | 2020-10-21 02:24 | NUR ---
ASSESMENT: PT WAS UP IN DAY AREA AT THE CHANGE OF SHIFT. PT IS MOTHERING TO PT'S AND NEEDS CONSTANT REDIRECTING. PT SOME TIMES CRIES (NO TEARS) ABOUT SIMPLE THINGS. RIGHT THUMB WAS NOTED WITH A BANDAID APPLIED. NOTHING VISIBLE UNDERNEATH THE DRESSING. PT CLAIMS THAT IT HURT. BLOOD PRESURE WAS SLIGHTLY ELEVATED AT THE BEGINNING OF THE SHIFT. SLOW PROGRESS TOWARDS DC GOALS. WILL CONTINUE TO MONITOR.
[2020-10-21 09:29] VITALS: BP 129/85
--- NOTE | 2020-10-21 10:17 | NUR ---
1015 RESUMMED CARE FROM OVERNIGHT SHIFT THIS AM, PATIENT ALERT IN DAY ROOM. PATIENT ORIENTED TO SELF ONLY PATIENT ATE BREAKFAST TOOK MEDICATION WITHOUT INCIDENCE. PATIENT DENIES SI/HI/AH/VH AT PRESENT PATIENT WANTS TO GO HOME. PATIENTS ABDOMEN SOFT BOWEL SOUNDS PRESENT LUNGS CLEAR PATIENT HAS 1+EDEMA IN ANKLES. PATIENT CALM COOPERATIVE IS SOMETIMES FORGETFUL WILL CONTINUE TO MONITOR PATIENT FOR SAFETY AND BEHAVIORS.
[2020-10-21 19:53] VITALS: BP 156/92
--- NOTE | 2020-10-22 01:06 | NUR ---
Assumed care on 10/21/20 @ 1900, Confused and oriented to person and Date only. Cannot give other indicators of orientation. Continent and urinates in the toilet. Last BM earlier today 10/21. Ultrasound done on legs and found to be negative. Confusion and anxiety noted at bedtime, worrying about getting a ride to go home. Denies SI, HI, and hallucinations. Anxiety and confusion noted. Chalino hose removed at HS. Will continue to monitor for safety and comfort as per unit protocol.
[2020-10-22 08:56] VITALS: BP 150/99
[2020-10-22 09:19] VITALS: BP 150/89
--- NOTE | 2020-10-22 12:13 | NUR ---
1200 RESUMMED CARE FROM OVERNIGHT SHIFT THIS AM, PATIENT IN DAY ROOM SITTING QUIET. PATIENT ATE BREAKFAST TOOK MEDICATION WITHOUT INCIDENCE PATIENT ALERT ORIENTED TO SELF. PATIENT DENIES SI/HI/AH/VH AT PRESENT PATIENT CALM COOPERATIVE PARTICIPATES IN GROUPS. PATIENTS ABDOMEN SOFT BOWEL SOUNDS PRESENT LUNGS CLEAR. PATIENT LESS ANXIOUS AND INTERACTS WITH SOME OF THE PATIENTS. WILL CONTINUE TO MONITOR PATIENT FOR SAFETY AND BEHAVIORS.
[2020-10-22 20:00] VITALS: BP 177/78
[2020-10-22 20:06] VITALS: BP 177/78
--- NOTE | 2020-10-23 04:26 | NUR ---
PATIENT HAS BEEN A/0X1 AND CALM AND PLEASANT TONIGHT. SHE HAS A SLOW STEADY GAIT. SHE TOOK HER MEDS WHOLE WITH WATER. SHE HAS SLEPT THRU THE NIGHT. SHE VOIDS WITHOUT DIFFICULTY. PATIENT HAS DENIED SI/HI/AVH. DENIES PAIN. HAS SLIGHT EDEMA IN RIGHT LEG AT 1+. BED IN LOW POSITION. ROUTINE ROUNDING TO ASSESS STATUS AND SAFETY OF PATIENT.
[2020-10-23 08:00] VITALS: BP 137/82
--- NOTE | 2020-10-23 08:46 | NUR ---
PT SITTING EATING BREAKFAST. PT TOOK MEDS WHOLE WITHOUT ANY ISSUES. PT LUNGS CLEAR. PT DENIES ANY PAIN. PT UP WITH STEADY GAIT. PT VERY PLEASANT WITH STAFF AND PEERS.
[2020-10-23 08:48] VITALS: BP 137/82
--- NOTE | 2020-10-23 10:48 | NUR ---
Followup: continues to eat 80-100% of meals past week. Wts stable at 115 lb although down 25 lb from 2019. BMI 21.8 adequate. Remains on regular diet. Last BM 10/23. Low nutrition risk
--- NOTE | 2020-10-23 14:07 | NUR ---
BABS spoke with Babita with [facility] who said they can accept pt. She asked for a DA 124C form and pt's most recent COVID test. BABS faxed to [phone] pt's most recent covid test which is negative. She said she has already spoken to Seble. She asked BABS to arrange transportation, and for a PT order. BABS contacted [facility] who said it was okay to send pt to [facility]. BABS arranged transportation with [employer]. Trip #[id number]. BABS team will continue to follow pt during her stay on this unit.
--- NOTE | 2020-10-23 16:31 | NUR ---
PT HAS HAD A GOOD DAY. PT TALKING WITH OTHER PEERS AND PARTIACIPATING IN GROUP AND TAKING MEDS.
[2020-10-23 19:23] VITALS: BP 154/80
[2020-10-23 19:45] VITALS: BP 154/80
--- NOTE | 2020-10-24 02:29 | NUR ---
PATIENT BECAME HYSTERICAL AT FIRST OF SHIFT AND WAS CRYING AND IN A PANIC DEMANDING THAT THIS NURSE AND STAFF LET HER OUT THE UNIT DOOR BECAUSE HER BROTHER MERLIN, (MERLIN IS ACTUALLY SON) WAS WAITING TO TAKE HER HOME. TRIED TO CONSOLE AND DEESCALATE PATIENT WITHOUT SUCCESS. CALLED HER SON, MERLIN AND SPOKE WITH HIM. HE STATES SHE DID THIS SAME THING AT 1630 TODAY AND THEY CALLED HIM. HE STATES HE HAD TALKED WITH HER EARLIER IN THE DAY AND SHE WAS HAPPY WHEN THEY HUNG UP. THEN SHE WAS HYSTERICAL AND DELUSIONAL WHEN THEY CALLED HIM AT 1630 TO SPEAK WITH MOTHER. PATIENT DID CALM DOWN AFTER TALKING WITH HIM THIS EVENING AND WAS ABLE TO SIT AND HAVE ICECREAM FOR HS SNACK. SHE SAT AND VISITED WITH ANOTHER PATIENT AND DRANK ICE WATER ALL EVENING. AT BEDTIME SHE HAD WANDERED FROM HER ROOM TO ANOTHER PATIENT'S ROOM LOOKING FOR HER KIDS AND WAS UPSET. SHE HAS BEEN TO THE RESTROOM TO VOID 5 TIMES THIS EVENING. DENIES PAIN/BURNING. PATIENT BECAME CALM AGAIN WHEN SHE WAS TAKEN BACK TO HER ROOM AND HELPED TO BED. PT APPEARS TO BE SLEEPING WITH EYES CLOSED. BED IN LOW POSITION. PATIENT TOOK HER MEDS WHOLE WITH WATER. DENIES PAIN/SI/HI. A/0X 1. CONTINUING TO MONITOR.
[2020-10-24] MEDS ORDERED: SEROQUEL 25 MG25 M1 PO (07:16)
[2020-10-24] MEDS ORDERED: DIVALPROEX SOD500 M1 PO (07:16)
[2020-10-24] MEDS ORDERED: PEPCID20 MG PO (07:16)
[2020-10-24] MEDS ORDERED: MACROBID 100 M100 M2 PO (07:16)
[2020-10-24 08:00] VITALS: BP 131/72
--- NOTE | 2020-10-24 08:27 | NUR ---
PT SITTING IN DINING ROOM EATING BREAKFAST. PT TOOK MEDS THIS AM WITHOUT ANY ISSUES. PT IN A PLEASANT MOOD TODAY. PT UP AD HOMERO WITH STEADY GAIT. STILL COULDN'T FIND HEARING AID. NIGHT NURSE CHECKED HER LOCKER AND BED.
[2020-10-24 09:30] VITALS: BP 131/72
--- NOTE | 2020-10-24 12:30 | NUR ---
BABS received a call from Seble stating that pt's OP psych doctor will not write a letter enacting DPOA or stating that pt cannot return home because he is not the one who made that assessment. BABS explained that she cannot provide her a document enacting her dpoa as pt just signed that dpoa on this admission. Seble explained that she simply needs a letter from a physician stating that pt cannot return to her home for safety reasons. This is so pt's current apartment complex will release her from her lease without penalty. BABS contacted Nikita Marquez and explained what was needed. He said he would be willing to sign the document stating such for pt as he has been a part of her treatment team. BABS created document and faxed and emailed it to Nikita Marquez. BABS contacted Seble and provided an update. Seble said she will orange picking supervisor document by this evening. BABS team will continue to follow pt during her stay on this unit.
--- NOTE | 2020-10-24 12:58 | NUR ---
PT DRESSED AND READY TO GO TO FACILITY. PT VERY HAPPY TO SEE HER STUFFED BABY DOG AGAIN. PT STATED ONE DAY WHEN YOUR OLD IT HELPS. PT KISSING HER BABY AND VERY EXCITED. PT RECIEVED ALL PERSONAL ITEMS.
--- NOTE | 2020-10-24 14:21 | NUR ---
BABS D/C NOTE BABS faxed d/c documents to [facility] including pt's DA 124C. Seble contacted BABS and asked her to email the letter for pt's apartment to [email or web address];
--- NOTE | 2020-10-24 14:25 | NUR ---
PT RIDE IS HERE FOR . PT VERY EXCIETED TO LEAVE. PT WAS GETTING UPSET AND WANTING SAYING THEY ARE NOT COMING. PT WAS SUPPOSED TO D/C AT 1300. ENCOURAGED PT TO SIT IN DINING ROOM UNTIL RIDE WAS HERE. PT EVENTUALLY SAT WITH PEERS AND WAITED.
--- NOTE | 2020-10-24 14:31 | NUR ---
PT LEAVING AT THIS TIME VIA W/C TO TRANSPORT. PT HAS ALL BELONGINGS WITH HER.
--- NOTE | 2020-10-26 13:58 | NUR ---
Received a call from Seble, patient daughter, stating that she would like to be re-imbursed for the one hearing aide that was lost during hospitalization. Call was received on 10/25/20 and transferred to [facility]. Seble reported that it was a new pair of bilateral hearing aides that cost $5,000 and she would like to be re-imbursed $2,500 to replace the one hearing aide. Reports that she spoke with the company and will need to pay for replacement. Seble did report that she understood patient was re-locating hearing aides several times but she arrived to the hospital with both hearing aides and feels that the one needs to be replaced by the hospital.
--- NOTE | 2020-10-26 14:38 | NUR ---
Spoke with Seble, patient daughter, regarding missing hearing aide. Informed Seble that [facility] with replace the cost of lost hearing aide. Informed Seble to mail or email copy of invoice to myself or Ashly Ferrer, risk management. Seble reports that patient sees Dr. Aristeo Sue on the 4th floor at [facility]. She reports that she will request Dr. Aristeo Sues office to send a copy of invoice to Ahsly Ferrer. Also informed Seble that she will be receiving a letter from Ashly Ferrer with all of her contact information included. Seble appreciative in finding a resolution in replacing patients hearing aide.
== END 2020-10-24 14:31 | DRG 884 ==
LOC: SBH 17:49
PROVIDERS: ADMIT Psychiatry & Neurology Psychiatry; ATTEND Psychiatry & Neurology Psychiatry
DX: F01.51 Vascular dementia, unspecified severity, with behavioral disturbance (principal); N39.0 Urinary tract infection, site not specified; F60.9 Personality disorder, unspecified; E78.5 Hyperlipidemia, unspecified; F41.1 Generalized anxiety disorder; I10 Essential (primary) hypertension; F22 Delusional disorders; F29 Unspecified psychosis not due to a substance or known physiological condition; Z66 Do not resuscitate; Z20.822 Contact with and (suspected) exposure to COVID-19; Z96.652 Presence of left artificial knee joint; Z90.49 Acquired absence of other specified parts of digestive tract; Z90.710 Acquired absence of both cervix and uterus
CPT/HCPCS: 10880